=== PATIENT | male | born 1965 | race Caucasian/White ===

== ENCOUNTER 2019-01-31 14:33 | Outpatient (CLI) ==
--- NOTE | 2019-01-31 16:34 | MRI ---
EXAM: MRI right shoulder without contrast. HISTORY: Right shoulder pain. No known injury. Decreased range of motion. No reported right shoul barbara surgery.. TECHNIQUE: Using a local coil on a high field strength magnet multiplanar multisequence magnet reson ance imaging performed of the right shoulder without intravenous or intra-articular gadolinium contra st. FINDINGS: I do not have prior radiographs of the right shoulder available for comparison at the time of this dictation. A Type I I acromion. Coracoacromial ligament/arch intact without definitive thickening. There is a marked degree of right acromioclavicular joint degenerative arthrosis/osteoarthrosis with trace effus ion. Prominent inferior osteophyte formation. The deltoid musculature normal signal intensity. Tra ce fluid subacromial/subdeltoid bursa. Muscle bulk of the rotator cuff shows no acute muscle strain or overt atrophy. Supraspinatus tendino sis diffusely over the insertion and critical zone with partial thickness more articular sided tearin g involving at least 50% thickness of the cuff. This tearing is full width. There is some tendinosi s to a lesser degree involving more cranial infraspinatus tendon fibers. Posterior inferior intact t eres minor tendon fibers. Anterior subscapularis tendinosis. Long head of the biceps tendon shows t endinosis/tenosynovitis. The right humeral head is within normal limit in morphology and seated. No right glenohumeral joint centered subchondral bone marrow edema or bone erosions. Small right glenohumeral joint effusion. R ight glenohumeral joint osteoarthrosis. Questionable tear posterior-superior right glenoid labrum on this non-arthrographic examination.. IMPRESSION: Marked right acromioclavicular joint degenerative arthrosis/osteoarthrosis with trace ef fusion. Prominent inferior osteophyte formation. Supraspinatus tendinosis with partial thickness more articular sided tearing involving at least 50% t hickness of the cuff. This is full width. No definitive full-thickness rotator cuff tear identified . Trace fluid subacromial/subdeltoid bursa may reflect an overlying degree bursitis and/or be sequel ae of prior shoulder injection. Correlate clinically. Some infraspinatus tendinosis to a lesser deg ree. Anterior subscapularis tendinosis. Proximal long head biceps tendinosis/tenosynovitis. Small right glenohumeral joint effusion. Right glenohumeral joint osteoarthrosis. Questionable tear posterior-superior right glenoid labrum on this non-arthrographic examination. Recommendation is obtainment and correlation with plain film radiographs of the right shoulder as non e are available for comparison at the time of this dictation.
== END 2019-01-31 14:34 | disposition home or self-care (01) ==
LOC: RAD 14:33
PROVIDERS: ATTEND Nurse Practitioner
DX: M25.511 Pain in right shoulder (principal); G89.29 Other chronic pain